=== PATIENT | female | born 1945 | race Caucasian/White ===

== ENCOUNTER → 2017-05-04 | Outpatient (CLI) | payer OTHER | LOC: FIMAGING 12:47 | PROVIDERS: ATTEND Internal Medicine | DX: N63.21 Unspecified lump in the left breast, upper outer quadrant (principal); Z86.73 Personal history of transient ischemic attack (TIA), and cerebral infarction without residual deficits; Z79.01 Long term (current) use of anticoagulants | CPT/HCPCS: G0204 ==

== ENCOUNTER → 2017-05-17 | Outpatient (CLI) | payer OTHER ==
[~2017-05-17] MED LIST: BUPIVACAINE 0.5% 10 ML SDV ONE; LIDOCAINE 1% 300 MG/30 ML SDV ONE
== END ==
LOC: FIMAGING 07:11
PROVIDERS: ATTEND Internal Medicine
PROC: 07B63ZX Excision of Left Axillary Lymphatic, Percutaneous Approach, Diagnostic (ICD-10-PCS; principal; 2017-05-17)
PROC: 0HBU3ZX Excision of Left Breast, Percutaneous Approach, Diagnostic (ICD-10-PCS; principal; 2017-05-17)
DX: C50.912 Malignant neoplasm of unspecified site of left female breast (principal); C77.3 Secondary and unspecified malignant neoplasm of axilla and upper limb lymph nodes

== ENCOUNTER 2017-08-01 07:59 | Day surgery (SDC) | payer OTHER ==
[2017-08-01] MEDS ORDERED: ceFAZolin 2 GM/SWFI 2 GM/20 ML SYR IVP ONE (08:16)
[2017-08-01] MEDS ORDERED: LR 1,000 ML IV ONE (08:17)
[2017-08-01] MEDS ORDERED: LIDOCAINE 1% 2 ML INJ ID PRN (08:17)
[2017-08-01] MEDS ORDERED: BUPIVACAINE 0.25% 30 ML SDV ONE (08:50)
--- NOTE | 2017-08-01 09:42 | PDGENHP ---
History and Physical - Chief Complaint L breast cancer, metastatic - History of Present Illness 72yo F, newly diagnosed multifocal metastatic breast cancer. Planning neoadj tx. 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 Denies complaints today. History Information - Allergies/Home Medication List Allergies/Adverse Reactions: heparin Allergy (Verified 07/31/17 17:35) Itching No Allergies [NKDA] Allergy (Verified 05/10/17 13:35) Home Medications: Aspirin 81mg (*) 07/31/17 [Last Taken 07/29/17 09:00] Eliquis 07/31/17 [Last Taken 07/29/17 19:00] Furosemide 07/31/17 [Last Taken 07/29/17] Vitamin D3 (*) 07/31/17 [Last Taken 07/29/17] I have personally reviewed and updated: family history, medical history, social history, surgical history Past Medical History: breast cancer - Past Medical History CVA - Surgical History Additional surgical history: hyst, R clavicle, pelvic fx - Family History Positive for: non-pertinent - Social History Smoking Status: Unknown if ever smoked Review of Systems Review of Systems: ROS: 10pt was reviewed & negative except for what was stated in HPI & below Physical Exam Physical Exam: Temp Pulse Resp BP Pulse Ox 36.9 C 81 18 126/67 H 91 L 08/01/17 08:39 08/01/17 08:39 08/01/17 08:39 08/01/17 08:39 08/01/17 08:39 Constitutional: no apparent distress, appears nourished, not in pain Eyes: PERRL, anicteric sclera, EOMI Ears, Nose, Mouth, Throat: moist mucous membranes, hearing normal, ears appear normal, no oral mucosal ulcers Cardiovascular: regular rate and rhythym, no murmur, rub, or gallop, No edema Respiratory: no respiratory distress, no rales or rhonchi, clear to auscultation Gastrointestinal: normoactive bowel sounds, soft, non-tender abdomen, no palpable masses Genitourinary: no bladder fullness, no bladder tenderness Skin: warm, normal color, no rashes or abrasions, no fluctuance, no induration, No mottled Musculoskeletal: full muscle strength, no muscle tenderness, normal joint ROM, no joint effusions Psychiatric: interacting appropriately, not anxious, not encephalopathic, thought process linear Lymph, Heme, Immunologic: no cervical LAD, no supraclavicular LAD Assessment & Plan Assessment: 72yo F newly diagnoses metastatic multifocal breast ca Plan: Plan for port placement, RBA discussed.
[2017-08-01] MEDS ORDERED: MIDAZOLAM 2 MG/2 ML VIAL IVP ONE (09:45)
[2017-08-01] MEDS ORDERED: MIDAZOLAM 2 MG/2 ML VIAL ONE (09:46)
--- NOTE | 2017-08-01 09:46 | PDANEPAE ---
ANE Past Medical History - Cardiovascular History Hx Hypertension: No Hx Arrhythmias: No Hx Chest Pain: No Hx Coronary Artery / Peripheral Vascular Disease: No Hx CHF / Valvular Disease: No Hx Palpitations: No Cardiovascular History Comment: denies HTN-lasix for swelling of ankles - Pulmonary History Hx COPD: No Hx Asthma/Reactive Airway Disease: No Hx Recent Upper Respiratory Infection: No Hx Oxygen in Use at Home: No Hx Sleep Apnea: Yes Sleep Apnea Screening Result - Last Documented: Positive Pulmonary History Comment: lives at [address] uses O2 at night 4L w/CPAP. Hx PE -tx w/Heparin. - Neurologic History Hx Cerebrovascular Accident: Yes Hx Seizures: No Hx Dementia: No Neurologic History Comment: CVA 04-17-17 w/no deficits. - Endocrine History Hx Diabetes: No Obesity: severe - Renal History Hx Renal Disorders: No - Liver History Hx Hepatic Disorders: No - Neurological & Psychiatric Hx Hx Neurological and Psychiatric Disorders: No - Cancer History Hx Cancer: Yes Cancer History Comment: L breast - Congenital Disorder History Hx Congenital Disorders: No - GI History GERD: no Hx Gastrointestinal Disorders: No - Surgical History Prior Surgeries: fx pelvis w/retained hardware ANE Review of Systems Review of Systems: - Exercise capacity METS (RN): 4 METS ANE Patient History - Allergies Allergies/Adverse Reactions: heparin Allergy (Verified 07/31/17 17:35) Itching No Allergies [NKDA] Allergy (Verified 05/10/17 13:35) - Home Medications Home Medications: Aspirin 81mg (*) 07/31/17 [Last Taken 07/29/17 09:00] Eliquis 07/31/17 [Last Taken 07/29/17 19:00] Furosemide 07/31/17 [Last Taken 07/29/17] Vitamin D3 (*) 07/31/17 [Last Taken 07/29/17] - NPO status NPO Since - Liquids (Date): 08/01/17 NPO Since - Liquids (Time): 05:45 NPO Since - Solids (Date): 07/31/17 NPO Since - Solids (Time): 19:30 - Anes Hx Anes Hx: no prior problems - Smoking Hx Smoking Status: Never smoked ANE Labs/Vital Signs - Vital Signs Blood Pressure: 126/67 Heart Rate: 81 Respiratory Rate: 18 O2 Sat (%): 91 Height: 157.48 cm Weight: 136.078 kg ANE Physical Exam - Airway Mallampati Score: Class 2 Mouth exam: normal dental/mouth exam - Pulmonary Pulmonary: no respiratory distress, no rales or rhonchi, clear to auscultation - Cardiovascular Cardiovascular: regular rate and rhythym, no murmur, rub, or gallop - ASA Status ASA Status: III ANE Anesthesia Plan Anesthesia Plan: GA with mask
[2017-08-01] MEDS ORDERED: fentaNYL 100 MCG/2 ML INJ ONE (09:50)
[2017-08-01] MEDS ORDERED: PROPOFOL 200 MG/20 ML VIAL ONE (09:50)
[2017-08-01] MEDS ORDERED: HYDROCODONE/APAP 5/325 TAB PO PRN (10:10)
[2017-08-01] MEDS ORDERED: NALOXONE HCL 0.4 MG/ML INJ IVP PRN (10:10)
[2017-08-01] MEDS ORDERED: ACETAMINOPHEN 500 MG TAB PO PRN (10:10)
[2017-08-01] MEDS ORDERED: ONDANSETRON 4 MG/2 ML VIAL IVP PRN (10:10)
[2017-08-01] MEDS ORDERED: PROMETHAZINE HCL 25 MG/ML INJ IVP PRN (10:10)
[2017-08-01] MEDS ORDERED: fentaNYL 100 MCG/2 ML INJ IVP PRN (10:10)
[2017-08-01] MEDS ORDERED: LR 500 ML IV PRN (10:10)
--- NOTE | 2017-08-01 10:55 | POSTOPPROG ---
Post Op Note Date of Operation: 08/01/17 Surgeon: Shane Alvarado Anesthesiologist: Anabell Anesthesia: IV Sedation Pre-op Diagnosis: Breast cancer Post-op Diagnosis: same Procedure: R ultrasound guided IJ power port placement c fluoro Findings: successful placement Inf/Abcess present in the surg proc area at time of surgery?: No EBL: Minimal
[2017-08-01 11:11] VITALS: RESP 14
--- NOTE | 2017-08-01 11:15 | POSTANESTH ---
Post Anesthetic Evaluation Cardiovascular Status: Normal, Stable, Similar to Pre-Op Cond Respiratory Status: Normal, Stable, Similar to Pre-op Cond. Level of Consciousness/Mental Status: Can Participate in Eval, Alert and Oriented Pain Control: Adequate, Prn Tx Ordered Nausea/Vomiting Control: Adequate, Prn Tx Ordered Complications Possibly Related to Anesthesia: None Noted
[2017-08-01 11:41] VITALS: TEMP 98.2
[2017-08-01 11:55] VITALS: O2SAT 91
[2017-08-01 11:59] VITALS: BP 133/77; PULSE 67
--- NOTE | 2017-08-01 12:23 | GOP ---
[f rep st] OPERATIVE REPORT DATE OF OPERATION: 08/01/2017 SURGEON: Shane Alvarado MD MATERIAL DAMAGE ADJUSTER: None. ANESTHESIA: IV sedation. ANESTHESIOLOGIST: Manjinder Hung MD. PREOPERATIVE DIAGNOSIS: Metastatic breast cancer. POSTOPERATIVE DIAGNOSIS: Metastatic breast cancer. PROCEDURE PERFORMED: Ultrasound-guided right internal jugular PowerPort placement with intraoperative fluoroscopy. FINDINGS: Successful placement of port, both withdrew and flushed appropriately. SPECIMENS: None. ESTIMATED BLOOD LOSS: 5 cc. DESCRIPTION OF PROCEDURE: The patient was greeted in the preoperative suite. Once again, risks, benefits, and alternatives were discussed. Consent was signed. She was then brought back to the operative suite, placed on the OR table in a supine position. After all anesthesia machines including SCDs were on and functioning, a [employer] time-out was performed. After successful induction of general anesthesia, the patient's right neck was prepped and draped in typical sterile fashion. I identified the right internal jugular vein using the sterile ultrasound and successfully ablated it using the Seldinger technique. I successfully threaded my guidewire over which the peel- away sheath was successfully advanced into the right internal jugular vein. I then made my port pocket approximately 2 fingerbreadths below the patient's clavicle and made the pocket appropriately sized to hold the port. I then tunneled the catheter from the port site to the stick site and successfully fed it through the peel-away sheath. Using intraoperative fluoroscopy, I sized it appropriately into the cavoatrial junction. It was then attached to the port which both withdrew and flushed appropriately. It was heparin locked per routine. It was attached to the subcutaneous tissue with a single interrupted Prolene laterally. Subcutaneous tissue was then reapproximated with interrupted 3-0 Vicryl and closed with a running 4-0 Monocryl over which Dermabond was placed. Local anesthesia was infiltrated into the operative site. Dermabond was placed over the incision. The patient was then gently awoken and taken to the PACU in satisfactory condition. DRAINS: None. COUNTS: All counts were reported as correct x2. /[id number]/MODL MTDD
== END 2017-08-01 12:39 | disposition home or self-care (01) ==
LOC: FSGY 07:59
PROVIDERS: ATTEND Surgery
PROC: 05HM33Z Insertion of Infusion Device into Right Internal Jugular Vein, Percutaneous Approach (ICD-10-PCS; principal; 2017-08-01 09:45)
PROC: 0JH60XZ Insertion of Tunneled Vascular Access Device into Chest Subcutaneous Tissue and Fascia, Open Approach (ICD-10-PCS; principal; 2017-08-01 09:45)
DX: C50.912 Malignant neoplasm of unspecified site of left female breast (principal)
CPT/HCPCS: C1788; J0171; J0690; J1642; J2250; J2704; J3010

== ENCOUNTER → 2017-11-30 | Outpatient (CLI) | payer OTHER | LOC: FIMAGING 08:31 | PROVIDERS: ATTEND Nurse Practitioner | DX: C50.812 Malignant neoplasm of overlapping sites of left female breast (principal) ==

== ENCOUNTER → 2018-01-17 | Outpatient (CLI) | payer OTHER ==
--- NOTE | 2018-01-18 08:40 | CPEKG ---
Test Reason : preop Blood Pressure : / mmHG Vent. Rate : 078 BPM Atrial Rate : 079 BPM P-R Int : 200 ms QRS Dur : 085 ms QT Int : 394 ms P-R-T Axes : -05 008 010 degrees QTc Int : 449 ms Sinus rhythm Low voltage, precordial leads Confirmed by Troy Terrazas ([id number]) on 01/18/2018 8:39:41 AM Referred By: Confirmed By:Troy Terrazas
== END ==
LOC: FPAT 09:28
PROVIDERS: ATTEND Surgery
DX: Z01.810 Encounter for preprocedural cardiovascular examination (principal)

== ENCOUNTER 2018-01-19 07:32 | Inpatient (IN) | payer OTHER ==
[~2018-01-19 07:32] MED LIST changes: -BUPIVACAINE 0.5% 10 ML SDV ONE; -LIDOCAINE 1% 300 MG/30 ML SDV ONE; +ceFAZolin 3 GM in D5W 100 ML IV ONE
[2018-01-19] MEDS ORDERED: LR 1,000 ML IV ONE (08:14)
[2018-01-19] MEDS ORDERED: LIDOCAINE 1% 2 ML INJ ID PRN (08:14)
[2018-01-19] MEDS ORDERED: LIDOCAINE 1% 2 ML INJ ONE (08:18)
--- NOTE | 2018-01-19 09:27 | PDHPUP ---
History & Physical Update H&P update statement: This history and physical update is based on an assessment of the patient which was completed after admission or registration (within 24 hours), but prior to the surgery/procedure. H&P update: H&P reviewed & patient examined, no change in patient's condition since H&P completed
[2018-01-19] MEDS ORDERED: BUPIVACAINE 0.5% 30 ML SDV ONE (11:18)
[2018-01-19] MEDS ORDERED: THROMBIN (BOVINE) 20,000 UNIT SPRAY TP ONE (11:18)
--- NOTE | 2018-01-19 12:17 | PDANEPAE ---
ANE History of Present Illness brca ANE Past Medical History - Cardiovascular History Hx Hypertension: No Hx Arrhythmias: No Hx Chest Pain: No Hx Coronary Artery / Peripheral Vascular Disease: No Hx CHF / Valvular Disease: No Hx Palpitations: No Cardiovascular History Comment: denies HTN-lasix for swelling of ankles. some palpitations, has been "years ago" - Pulmonary History Hx COPD: No Hx Asthma/Reactive Airway Disease: No Hx Recent Upper Respiratory Infection: No Hx Oxygen in Use at Home: No Hx Sleep Apnea: Yes Sleep Apnea Screening Result - Last Documented: Positive Pulmonary History Comment: lives at 8,000 ft. uses O2 at night 4L w/CPAP. PE - 2012. PNEUMONIA - Neurologic History Hx Cerebrovascular Accident: Yes Hx Seizures: No Hx Dementia: No Neurologic History Comment: CVA 04-17-17 w/no deficits. - Endocrine History Hx Diabetes: No Hypothyroid: No Hyperthyroid: No Obesity: yes, severe - Renal History Hx Renal Disorders: No - Liver History Hx Hepatic Disorders: No - Neurological & Psychiatric Hx Hx Neurological and Psychiatric Disorders: No - Cancer History Hx Cancer: Yes Cancer History Comment: L breast - Congenital Disorder History Hx Congenital Disorders: No - GI History Hx Gastrointestinal Disorders: No - Other Health History Other Health History: POPPY LOWER EXT SWELLING ON RX. MISSING TEETH - Chronic Pain History Chronic Pain: Yes ([place] REGION/FEET) - Surgical History Prior Surgeries: PORT PLACEMENT 06/2017. fx pelvis w/retained hardware 2004. RT SHLDR PROCEDURE. HYSTERECTOMY. TONSILLECTOMY ANE Review of Systems Review of systems is: negative Review of Systems: - Exercise capacity Exercise capacity: >=4 METS (slow due to nerve damage in legs, SOB with moderate activity), limited by disability METS (RN): 2 METS ANE Patient History - Allergies Allergies/Adverse Reactions: heparin Allergy (Verified 07/31/17 17:35) Itching - Home Medications Home Medications: Apixaban [Eliquis] 5 mg PO BID 07/31/17 [Last Taken 01/17/18] Aspirin [Aspirin 81mg (*)] 81 mg PO DAILY 07/31/17 [Last Taken 01/17/18] Cholecalciferol Vit D3 [Vitamin D3 (*)] 5,000 units PO DAILY 07/31/17 [Last Taken 01/17/18] Furosemide [Lasix 20 MG (*)] 20 mg PO DAILY 07/31/17 [Last Taken 01/17/18] Acetaminophen [Tylenol 325mg (*)] 650 mg PO DAILY PRN 01/15/18 [Last Taken 01/18] Herbals/Supplements -Info Only 1 ea PO DAILY 01/15/18 [Last Taken 01/17/18] Loratadine [Claritin 10 mg] 10 mg PO DAILY PRN 01/15/18 [Last Taken 01/16/18] [place]-3 Fatty Acids [Fish Oil 1000 mg (*)] 1,000 mg PO DAILY 01/15/18 [Last Taken 01/16/18] Potassium Cl [Klor-Con] 10 meq PO DAILY 01/15/18 [Last Taken 01/17/18] - NPO status NPO Status: no food or drink >8 hours NPO Since - Liquids (Date): 01/19/18 NPO Since - Liquids (Time): 06:30 NPO Since - Solids (Date): 01/18/18 NPO Since - Solids (Time): 14:00 - Anes Hx Anes Hx: no prior problems - Smoking Hx Smoking Status: Never smoked - Alcohol Use Alcohol Use: None - Family Anes Hx Family Anes Hx: none ANE Labs/Vital Signs - Vital Signs Blood Pressure: 144/73 Heart Rate: 83 Respiratory Rate: 18 O2 Sat (%): 93 Height: 157.48 cm Weight: 127.006 kg ANE Physical Exam - Airway Neck exam: FROM Mallampati Score: Class 3 Mouth exam: poor dentition (cracked incisors) - Pulmonary Pulmonary: no respiratory distress - Cardiovascular Cardiovascular: regular rate and rhythym - ASA Status ASA Status: III ANE Anesthesia Plan Anesthesia Plan: general endotracheal anesthesia
[2018-01-19] MEDS ORDERED: PROPOFOL 200 MG/20 ML VIAL ONE (12:41)
[2018-01-19] MEDS ORDERED: fentaNYL 100 MCG/2 ML INJ ONE ×3 (12:41→16:58)
[2018-01-19] MEDS ORDERED: LIDOCAINE 2% 2 ML INJ ONE (12:41)
[2018-01-19] MEDS ORDERED: ONDANSETRON 4 MG/2 ML VIAL ONE (13:21)
[2018-01-19] MEDS ORDERED: DEXAMETHASONE 4 MG/ML VIAL ONE (13:21)
[2018-01-19] MEDS ORDERED: GLYCOPYRROLATE 0.2 MG/1 ML VIAL ONE ×2 (15:28)
[2018-01-19] MEDS ORDERED: NEOSTIGMINE METHYLSULFATE 5 MG/5 ML SYR ONE (15:28)
[2018-01-19] MEDS ORDERED: ONDANSETRON 4 MG/2 ML VIAL IVP PRN ×2 (15:48→16:57)
[2018-01-19] MEDS ORDERED: ONDANSETRON DISINTEGRATING 4 MG TAB PO PRN (15:48)
[2018-01-19] MEDS ORDERED: ACETAMINOPHEN 325 MG TAB PO PRN (15:49)
--- NOTE | 2018-01-19 15:51 | POSTOPPROG ---
Post Op Note Date of Operation: 01/19/18 Surgeon: Angela Leiva Anesthesiologist: clif Anesthesia: GET(General Endotracheal) Pre-op Diagnosis: L breast can Post-op Diagnosis: Same Indication: 72 yo with left breast cancer and positive noders Procedure: B Mast R SLN L ax dissection Inf/Abcess present in the surg proc area at time of surgery?: No EBL: 100-500 Drains: Alton Brown Specimen(s): B Breast, R SLN, L ax dissection
[2018-01-19] MEDS ORDERED: fentaNYL 100 MCG/2 ML INJ IVP PRN (16:57)
[2018-01-19] MEDS ORDERED: NALOXONE HCL 0.4 MG/ML INJ IVP PRN ×2 (16:57)
[2018-01-19] MEDS ORDERED: ALBUTEROL 3 ML DEYVIAL IH PRN (16:57)
[2018-01-19] MEDS: HYDROCODONE/APAP 5/325 TAB PO PRN ×2 (18:49→23:37)
[2018-01-20 01:01] LABS: PLATELET COUNT 168 10^3/uL (150-400)
--- NOTE | 2018-01-20 08:28 | SOAPPROG ---
SOAP Progress Note Assessment/Plan: Assessment/Plan: 72 Y F c hx PE on anticoagulation, s/p neoadjuvent chemotherapy , now s/p B mastectomy, R SN bx, L AND. POD#1. +events overnight. Hypotensive while getting up, syncope (?). Stat team called. Per Dr. Leiva, patient responded quickly to fluids. Now hemodynamically stable and alert. Pain controlled. Continue IVETT drains. Recheck H&H later today, drifting down. ADAT. Will need to restart anticoagulation when safe. Dispo: pending. Not today. S: not much pain, feels the pain more in her pelvis (old pelvic fracture) when pain meds wear off. Remembers events from last night. very pleasant and positive. O: alert, nad ctab rrr abd soft breast wounds well dressed. drains serosanguinous, more bloody on right than left. 01/20/18 08:24 Objective: Vital Signs Temp Pulse Resp BP Pulse Ox 36.6 C 82 16 110/51 L 97 01/20/18 08:12 01/20/18 08:12 01/20/18 08:12 01/20/18 08:12 01/20/18 08:12 Laboratory Results 01/20/18 04:22 01/19/18 01/20/18 01/21/18 05:59 05:59 05:59 Intake Total 2300 Output Total 945 Balance 1355 ICD10 Worksheet Patient Problems: Problems Problem Status Onset Breast cancer Acute - ICD10 Problem Qualifiers (1) Breast cancer
--- NOTE | 2018-01-20 09:35 | PDMN ---
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 72 y/o w/ L breast cancer admitted for bilateral mastectomy R SLN L ax node dissection, hypertensive post-op, symptomatic hypotension during night, H&H low 8.8, 26.1 trending down w/last being 7.5, 23.4, following. Pt w/hx afib, CVA, CHF,PE, uterine and breast cancer. Anticipate >2MN for ongoing med nec monitoring/ treatment.
[2018-01-20] MEDS: POTASSIUM CL 10 MEQ TAB PO SCH (10:35)
[2018-01-20] MEDS: ASPIRIN 81 MG CHEWABLE TAB PO SCH (10:35)
[2018-01-20] MEDS: FUROSEMIDE 20 MG TAB PO SCH (10:35)
--- NOTE | 2018-01-20 15:49 | ASMTCMCOM ---
CM Note CM Note Notes: Pt is s/p bilateral mastectomies. She has a hx of breast CA, afib, CVA, CHF, sleep apnea. CM will follow for any d/c needs. D/C plan: TBD Date Signed: 01/20/2018 03:48 PM Electronically Signed By:LAVERNE Velasquez
[2018-01-20] MEDS: HYDROCODONE/APAP 5/325 TAB PO PRN (21:25)
[2018-01-20] MEDS ORDERED: POLYETHYLENE GLYCOL 3350 17 GM PKT PO PRN (22:00)
[2018-01-20] MEDS ORDERED: LACTULOSE 20 GM/30 ML UDCUP PO PRN (22:00)
[2018-01-20] MEDS ORDERED: BISACODYL 10 MG SUPP PR PRN (22:00)
[2018-01-20] MEDS ORDERED: MAGNESIUM HYDROXIDE 30 ML UDCUP PO PRN (22:00)
[2018-01-20] MEDS: SENNOSIDES/DOCUSATE SODIUM TAB PO SCH (22:18)
--- NOTE | 2018-01-21 07:31 | SOAPPROG ---
SOAP Progress Note Assessment/Plan: Assessment/Plan: 72 Y F c hx PE on anticoagulation, s/p neoadjuvent chemotherapy , now s/p B mastectomy, R SN bx, L AND. POD#2. Acute post op blood loss anemia. Repeat H&H confirms. 2 u pRBCs today. IVETT drains are serosanguinous--not grossly bloody and not unusually high output ( 200cc overnight total). Will need to observe. Pain controlled. Continue PT/OT. Will need to restart anticoagulation when safe. Dispo: pending. Not today. Patient wants to go home with her close friend near [place] when ready. S: not much pain, feels the pain more in her pelvis (old pelvic fracture) when pain meds wear off. [place] very tired when OOB yesterday. very pleasant and positive. O: alert, nad ctab rrr abd soft breast wounds well dressed. drains serosanguinous, more bloody on right than left. 01/21/18 07:27 Objective: Vital Signs Temp Pulse Resp BP Pulse Ox 36.8 C 79 14 104/45 L 98 01/21/18 04:31 01/21/18 04:31 01/21/18 04:31 01/21/18 04:31 01/21/18 04:31 Laboratory Results 01/21/18 06:50 01/20/18 01/21/18 01/22/18 05:59 05:59 05:59 Intake Total 2300 1050 Output Total 945 450 Balance 1355 600 ICD10 Worksheet Patient Problems: Problems Problem Status Onset Breast cancer Acute - ICD10 Problem Qualifiers (1) Breast cancer
[2018-01-21] MEDS: ASPIRIN 81 MG CHEWABLE TAB PO SCH (08:18)
[2018-01-21] MEDS: SENNOSIDES/DOCUSATE SODIUM TAB PO SCH ×2 (08:18→21:56)
[2018-01-21] MEDS: FUROSEMIDE 20 MG TAB PO SCH (08:18)
[2018-01-21] MEDS: POTASSIUM CL 10 MEQ TAB PO SCH (08:18)
--- NOTE | 2018-01-21 16:08 | SOAPPROG ---
SOAP Progress Note Assessment/Plan: Assessment: WOUNDS OK WITH NO OBVIOUS HEMATOMA, MODERATE IVETT OUTPUT, TOLERATING TX Plan:CHECK HCT AFTER TX 01/21/18 16:07 Objective: Vital Signs Temp Pulse Resp BP Pulse Ox 36.6 C 81 14 96/38 L 99 01/21/18 14:03 01/21/18 14:03 01/21/18 14:03 01/21/18 14:03 01/21/18 14:03 Laboratory Results 01/21/18 06:50 01/20/18 01/21/18 01/22/18 05:59 05:59 05:59 Intake Total 2300 1050 Output Total 945 450 Balance 1355 600 ICD10 Worksheet Patient Problems: Problems Problem Status Onset Breast cancer Acute
[2018-01-21] MEDS: HYDROCODONE/APAP 5/325 TAB PO PRN (21:57)
[2018-01-22] MEDS: ASPIRIN 81 MG CHEWABLE TAB PO SCH (09:48)
[2018-01-22] MEDS: SENNOSIDES/DOCUSATE SODIUM TAB PO SCH ×2 (09:51→20:56)
[2018-01-22] MEDS: FUROSEMIDE 20 MG TAB PO SCH (09:51)
[2018-01-22] MEDS: POTASSIUM CL 10 MEQ TAB PO SCH (09:51)
--- NOTE | 2018-01-22 12:03 | SOAPPROG ---
SOAP Progress Note Assessment/Plan: Assessment/Plan: 72yo F c hx PE on Eliquis, s/p neoadjuvent chemotherapy, now s/ p B mastectomy, R SN bx, L axillary dissection. POD#3. Acute blood loss anemia - s/p 2u pRBC yesterday. H/H up today - recheck tomorrow. Asymptomatic today. Pain controlled. Continue PT/OT. Will need to restart anticoagulation when safe - tomorrow if H/H stable/ improving Dispo: likely tomorrow if blood counts improved. May need home care for IVETT drain management. Patient wants to go home with her close friend near [place] when ready. S: no pain today. very comfortable. some tightness of incisions. fatigue and dizziness completely resolved, much more energetic today after transfusion O: sitting upright in chair eating breakfast, comfortable, NAD No increased WOB Incisions CDI. R mastectomy site with mild ecchymosis, soft, nontender. L mastectomy site without ecchymosis or swelling. IVETT drains scant serosanguinous fluid - not gross blood Objective: Vital Signs Temp Pulse Resp BP Pulse Ox 36.7 C 77 12 114/49 L 95 01/22/18 11:34 01/22/18 11:34 01/22/18 11:34 01/22/18 11:34 01/22/18 11:34 Laboratory Results 01/22/18 10:00 01/21/18 01/22/18 01/23/18 05:59 05:59 05:59 Intake Total 1050 740 400 Output Total 450 220 320 Balance 600 520 80 ICD10 Worksheet Patient Problems: Problems Problem Status Onset Breast cancer Acute
--- NOTE | 2018-01-22 15:02 | ASMTCMCOM ---
CM Note CM Note Notes: Chart reviewed. Met with patient and she relays she is planning to discharge to a friends home. She denies current needs. CM to follow for needs. Plan: TBD Date Signed: 01/22/2018 03:01 PM Electronically Signed By:Linnette Henning RN
[2018-01-22] MEDS: HYDROCODONE/APAP 5/325 TAB PO PRN (20:56)
[2018-01-23] MEDS: HYDROCODONE/APAP 5/325 TAB PO PRN ×2 (05:35→20:33)
[2018-01-23] MEDS: ASPIRIN 81 MG CHEWABLE TAB PO SCH (08:58)
[2018-01-23] MEDS: POTASSIUM CL 10 MEQ TAB PO SCH (08:59)
[2018-01-23] MEDS: FUROSEMIDE 20 MG TAB PO SCH (08:59)
[2018-01-23] MEDS: SENNOSIDES/DOCUSATE SODIUM TAB PO SCH ×2 (08:59→20:33)
[2018-01-23] MEDS ORDERED: THROMBIN (BOVINE) 20,000 UNIT VIAL TP ONE (10:33)
--- NOTE | 2018-01-23 15:46 | SOAPPROG ---
SOAP Progress Note Assessment/Plan: Assessment/Plan: 72yo F c hx PE on Eliquis, s/p neoadjuvent chemotherapy, now s/ p B mastectomy, R SN bx, L axillary dissection. POD#4. Acute blood loss anemia - s/p 2u pRBC on 01/21. H/H stable. Increased swelling right chest - thrombin applied Pain controlled. Continue PT/OT. Will need to restart anticoagulation when safe - still on hold Dispo: Patient wants to go home with her close friend near [place] when ready. No home care S: slightly increased swelling R chest, not painful of pressure. some tightness of incisions. O: sitting upright in chair, comfortable, NAD No increased WOB Incisions CDI. R mastectomy site with mild ecchymosis and soft swelling superior to incision when compared to left. L mastectomy site without ecchymosis or swelling. IVETT drains - L drains serosanguinous. R drains more sanguinous today I returned this afternoon and instilled 1000IU/mL thrombin into the 2 R IVETT drains. I massaged the R chest to encourage the thrombin reached the surgical bed. Return IVETT drains to suction in 4 hours. Objective: Vital Signs Temp Pulse Resp BP Pulse Ox 36.9 C 79 16 125/56 H 90 L 01/23/18 11:46 01/23/18 11:46 01/23/18 11:46 01/23/18 11:46 01/23/18 11:46 Laboratory Results 01/23/18 05:15 01/22/18 01/23/18 01/24/18 05:59 05:59 05:59 Intake Total 740 900 Output Total 220 1905 Balance 520 -1005 ICD10 Worksheet Patient Problems: Problems Problem Status Onset Breast cancer Acute
[2018-01-24] MEDS: HYDROCODONE/APAP 5/325 TAB PO PRN ×2 (05:37→21:25)
[2018-01-24] MEDS: ASPIRIN 81 MG CHEWABLE TAB PO SCH (07:55)
[2018-01-24] MEDS: SENNOSIDES/DOCUSATE SODIUM TAB PO SCH ×2 (07:55→21:25)
[2018-01-24] MEDS: FUROSEMIDE 20 MG TAB PO SCH (07:56)
[2018-01-24] MEDS: POTASSIUM CL 10 MEQ TAB PO SCH (07:56)
--- NOTE | 2018-01-24 09:46 | SOAPPROG ---
SOAP Progress Note Assessment/Plan: Assessment/Plan: 72yo F c hx PE on Eliquis, s/p neoadjuvent chemotherapy, now s/ p B mastectomy, R SN bx, L axillary dissection. Acute blood loss anemia - s/p 2u pRBC on 01/21. H/H improving. Swelling and bruising R chest stable Pain controlled. Continue PT/OT. Will need to restart anticoagulation when safe - on hold x 1 more week d/t increased bleeding risk Dispo: Home tomorrow am. Will DC then go to [facility] for labs and herceptin infusion. Will then go home with her close friend near [place]. No home care. FU 1 week for drain check/removal S: swelling R chest stable, not painful or pressure. some tightness of incisions, stable. No sharp pain or discomfort. O: sitting upright in chair, comfortable, NAD No increased WOB Incisions CDI. R mastectomy site with stable ecchymosis and soft swelling superior to incision when compared to left. L mastectomy site without ecchymosis or swelling. IVETT drains - L drains serosanguinous. R drains thin sanguinous Objective: Vital Signs Temp Pulse Resp BP Pulse Ox 36.8 C 82 18 134/62 H 93 01/24/18 08:01 01/24/18 08:01 01/24/18 08:01 01/24/18 08:01 01/24/18 08:01 Laboratory Results 01/24/18 05:43 01/23/18 01/24/18 01/25/18 05:59 05:59 05:59 Intake Total 900 1450 Output Total 8750 6665 250 [facility] -1005 -620 -250 ICD10 Worksheet Patient Problems: Problems Problem Status Onset Breast cancer Acute
[2018-01-25 04:45] VITALS: BP 100/64
--- NOTE | 2018-01-25 07:22 | SOAPPROG ---
SOAP Progress Note Assessment/Plan: Assessment: 72 year old s/p bilateral mastectomy and L axillary dissection Acute blood loss anemia without overt immediate hematoma H/H stable Sleep apnea [facility] - hope to restart in 1 week S: Feeling much better today S: Standing up, appears well Ecchymosis that is soft in the right upper chest. IVETT drains with serosanguinous fluid Incisions cdi Plan: 01/25/18 07:20 Objective: Vital Signs Temp Pulse Resp BP Pulse Ox 36.7 C 72 15 100/64 97 01/25/18 04:00 01/25/18 04:00 01/25/18 04:00 01/25/18 04:00 01/25/18 04:00 Laboratory Results 01/24/18 05:43 01/24/18 01/25/18 01/26/18 05:59 05:59 05:59 Intake Total 1450 1300 Output Total 2079 1308 Balance -620 -25 ICD10 Worksheet Patient Problems: Problems Problem Status Onset Breast cancer Acute
--- NOTE | 2018-01-26 10:07 | GDS ---
ADMITTING DIAGNOSIS: Left breast cancer. SECONDARY DIAGNOSES: Atrial fibrillation, history of stroke, congestive heart failure, sleep apnea, pulmonary embolism, uterine cancer. REASON FOR ADMISSION: The patient is a 72-year-old woman with a left breast cancer who underwent demetrio adjuvant chemotherapy. She presents at this time for surgical intervention, pain control, and observ ation. HOSPITAL COURSE: She was taken to the operating room on 01/19/2018, by Dr. Angela Leiva for bilateral mastectomy with bilateral sentinel lymph node biopsy. At the time of surgery, 4 IVETT drains were plac ed, two on each side. The final pathology at the time of dictation shows right breast with fibroaden andrea and fibrocystic changes. Right axillary lymph node negative for metastatic disease. Left mastec familia shows infiltrating ductal carcinoma measuring 4 cm with a 2nd focus measuring 1.2 cm. 05/08 left axillary lymph node was significant for metastatic disease. On postoperative day #2, she had an epis ode of dizziness and lightheadedness. H and H were drawn, which showed acute blood loss anemia. She received 2 units of packed red blood cells. On postoperative day #4, her right mastectomy site appe ared more swollen, ecchymotic, and the drainage more bright red sanguinous. She received 20 cc of 10 00 international units/mL thrombin through the drains. Her H and H were stable through the rest of h er hospital stay and steadily increase. By postoperative day #6, she was ready for discharge, tolera ting regular diet, ambulating independently. Pain was well controlled with oral pain medication. CONDITION: Being discharged to the care of her friend who lives in [place]. No home care needed for IVETT drain management. DISCHARGE MEDICATIONS: She was instructed to hold her Eliquis for 1 week. Instructed to resume all other home medications. Please see EMR for further detail. DISCHARGE INSTRUCTIONS AND FOLLOWUP: She will hold her Eliquis for 1 week. Follow up with Dr. Leiva in 1 week. Empty and record IVETT drain output. On the day of discharge, she was transported immediat joey to [facility] to receive her monthly infusion of Herceptin and have labs drawn. She understands to [facility] in the meantime with any worsening symptoms, questions, or concerns. /[id number]/MODL
--- NOTE | 2018-01-30 09:24 | GOP ---
DATE OF OPERATION: SURGEON: Angela Leiva MD ANESTHESIA: General. ANESTHESIOLOGIST: Arsen Samaniego MD. PREOPERATIVE DIAGNOSIS: Left breast cancers with positive axillary lymph nodes. POSTOPERATIVE DIAGNOSIS: Left breast cancers with positive axillary lymph nodes. PROCEDURE PERFORMED: Bilateral mastectomy with right sentinel lymph node and left axillary dissection. FINDINGS: palpable node SPECIMENS: Right breast, short superior, long lateral right sentinel lymph node ; left breast, short superior, long lateral, left axillary contents. ESTIMATED BLOOD LOSS: 200 cc. INDICATIONS: Ami is a 72-year-old who was diagnosed with breast cancer. She had 2 invasive mucinous and invasive ductal which was HER-2/bridget positive. She underwent neoadjuvant chemotherapy. She presents for surgical treatment. DESCRIPTION OF PROCEDURE: Patient was brought into the operating room, placed supine on the table, and general anesthesia was administered. Her bilateral neck and chest were prepped and draped in the usual sterile fashion. I made an ellipse around her right breast and created superior and inferior skin flaps. My dissection occurred to the clavicle, sternum, inframammary fold, and mid axillary line. Was marked short superior, long lateral. This was submitted to Pathology for permanent. I used the gamma probe to identify the right sentinel lymph node. I excised this and sent this to Pathology. Hemostasis was achieved. Next, I moved to the left breast, and in a similar fashion, performed an ellipse. My dissection occurred to the clavicle, sternum, inframammary fold, and mid axillary line, and I removed the breast including the pectoralis fascia. I then performed an axillary lymph node dissection. I protected the axillary vein, thoracodorsal nerve, and long thoracic nerve from harm. I grabbed a large packet of axillary tissue including palpable nodes and submitted this to Pathology. Hemostasis was achieved. I placed 2 drains on each side. They were sutured in place with 3-0 nylon. I closed the skin with 3 -0 Vicryl and performed V-and-Y flaps laterally and closed the skin with 4-0 Monocryl. Mastisol, Steri-Strips, and sterile dressings were applied. She was awakened in the operating room, extubated, transferred to PACU in stable condition. DRAINS: [place]. /[id number]/MODL MTDD
== END 2018-01-25 08:03 | disposition home or self-care (01) | DRG 580 ==
LOC: F3N 07:32 → F1N 07:49 → OBSVTOIN 15:50 → F1N 17:54
PROVIDERS: ADMIT Surgery; ATTEND Surgery
PROC: 07B60ZX Excision of Left Axillary Lymphatic, Open Approach, Diagnostic (ICD-10-PCS; principal; 2018-01-19 12:00)
PROC: 0HTV0ZZ Resection of Bilateral Breast, Open Approach (ICD-10-PCS; principal; 2018-01-19 12:00)
PROC: 30233N1 Transfusion of Nonautologous Red Blood Cells into Peripheral Vein, Percutaneous Approach (ICD-10-PCS; 2018-01-21)
DX: C50.912 Malignant neoplasm of unspecified site of left female breast (principal); D24.1 Benign neoplasm of right breast; C77.3 Secondary and unspecified malignant neoplasm of axilla and upper limb lymph nodes; D62 Acute posthemorrhagic anemia; Z79.01 Long term (current) use of anticoagulants; Z86.711 Personal history of pulmonary embolism; Z86.73 Personal history of transient ischemic attack (TIA), and cerebral infarction without residual deficits
CPT/HCPCS: 97116-GP; 97162-GP; 97165-GO; 97530-GP; 97535-GO; A9520; G8987-GO-CI; G8988-GO-CI; G8989-GO-CI; J0690; J1100; J2405; J2704; J2710; J3010; P9016